=== PATIENT | male | born 1985 | race Caucasian/White ===

== ENCOUNTER 2017-10-27 05:05 | Emergency (ER) | payer OTHER ==
[~2017-10-27] VITALS: Ht 172.7 cm; Wt 68.0 kg
[2017-10-27 05:08] VITALS: BP_SYST 142
[2017-10-27 05:20] VITALS: BP_SYST 142
== END 2017-10-27 05:12 ==
LOC: SED 05:05
DX: Z02.89 Encounter for other administrative examinations (principal)